=== PATIENT | female | born 1975 | race Caucasian/White ===

== ENCOUNTER → 2025-02-12 13:16 | Outpatient (REF) | payer OTHER, SELFPAY | LOC: HWWDC 13:16 | PROVIDERS: ATTENDING PHYSICIAN Nurse Practitioner Adult Health | DX: Z12.31 Encounter for screening mammogram for malignant neoplasm of breast (principal); M79.644 Pain in right finger(s) | CPT/HCPCS: 73140; 77063; 77067 ==